=== PATIENT | female | born 1945 | race Caucasian/White ===

== ENCOUNTER 2020-01-30 10:51 | Emergency (ER) | payer OTHER ==
[2020-01-30 10:58] VITALS: BMI 28.0
--- OUTSIDE RECORDS SUMMARY | 2020-01-30 11:00 | XMS ---
:1945 Author Organization [facility] Support Name Relationship Address Phone [facility]ISTER [employer] [facility] [employer] Unavailable [address] [place] [address] MARY BERGER DAUGHTER [address] [place] [address] Re-disclosure Warning The records that you are about to access may contain information from federally- assisted alcohol or drug abuse programs. If such information is present, then the following federally mandated warning applies: This information has been disclosed to you from records protected by federal confidentiality rules (42 CFR part 2). The federal rules prohibit you from making any further disclosure of this information unless further disclosure is expressly permitted by the written consent of the person to whom it pertains or as otherwise permitted by 42 CFR part 2. A general authorization for the release of medical or other information is NOT sufficient for this purpose. The Federal rules restrict any use of the information to criminally investigate or prosecute any alcohol or drug abuse patient.The records that you are about to access may contain highly sensitive health information, the redisclosure of which is protected by Article 27-F of the [facility] Public Health law. If you continue you may haveaccess to information: Regarding HIV / AIDS; Provided by facilities licensed or operated by the [facility] Office of Mental Health; or Provided by the [facility] Office for People With Developmental Disabilities. If such information is present, then the following [facility] mandated warning applies: This information has been disclosed to you from confidential records which are protected by state law. State law prohibits you from making any further disclosure of this information without the specific written consent of the person to whom it pertains, or as otherwise permitted by law. Any unauthorized further disclosure in violation of state law may result in a fine or halfway sentence or both. A general authorization for the release of medical or other information is NOT sufficient authorization for further disclosure. Insurance Providers Payer name Policy type Policy ID Covered Covered libertarian's Policy P clementine / Coverage libertarian ID relationship to [employer] type hernadez [id number] [address] [place] [address] PPO 1
--- NOTE | 2020-01-30 11:11 | PDOC ---
History of Present Illness - General Chief Complaint: Lightheaded Stated Complaint: DIZZINESS/VOMITING Time Seen by Provider: 01/30/20 10:54 - History of Present Illness Initial Comments: Morenita Osei is a 75 y/o female with PMH significant for s/p RI and stent x1 on aspirin plavix presenting today with vertigo. Reports that the vertigo started approximately 1 hour [employer]. She has had 1 prior episode of vertigo 5 years ago when she was undergoing a stressful situation with her son in [place]. She was admitted to the hospital for dehydration that time. Has not tried anything to make it better. Worse when moving to a seated or standing position. No headache/vision changes. No fever/chills. No chest pain/shortness of breath. No abd/back pain. No nausea/vomiting. No cough. No leg swelling. No urinary symptoms. SocHx: social ETOH, never smoker Past History - Medical History Allergies/Adverse Reactions: Allergies Allergy/AdvReac Type Severity Reaction Status Date / Time No Known Allergies Allergy Verified 01/30/20 10:58 Cardiac Disorders: Yes COPD: No HTN: Yes Hypercholesterolemia: Yes - Surgical History Cardiac Surgery: Yes (stent) - Reproductive History Is Patient Now?: No - Psycho-Social/Smoking History Smoking History: Never smoked - Substance Abuse Hx (Audit-C & DAST Scrn) How often the patient has a drink containing alcohol: Monthly or less Score: In Men: 4 or > Positive; In Women: 3 or > Positive: 1 Screen Result (Pos requires Nsg. Audit-10AR): Negative In the last yr the pt used illegal drug/Rx for NonMed reason: No Score: Yes response is considered Positive: 0 Screen Result (Positive result requires Nsg. DAST-10): Negative Review of Systems - Review of Systems Comments:: GENERAL/CONSTITUTIONAL: No fever or chills. No weakness._ HEAD, EYES, EARS, NOSE AND THROAT: No change in vision. No change in hearing. No sore throat._ CARDIOVASCULAR: No chest pain or shortness of breath_ RESPIRATORY: Denies cough, hemoptysis_ GASTROINTESTINAL: No nausea, vomiting, diarrhea or constipation._ GENITOURINARY: No dysuria, frequency, or change in urination._ MUSCULOSKELETAL: No joint or muscle swelling or pain. No neck or back pain._ SKIN: No rash_ NEUROLOGIC: +vertigo. No headache, loss of consciousness, or change in strength/sensation._ ENDOCRINE: No increased thirst. No abnormal weight change_ HEMATOLOGIC/LYMPHATIC: No anemia, easy bleeding, or history of blood clots._ ALLERGIC/IMMUNOLOGIC: No hives or skin allergy._ *Physical Exam - Vital Signs Last Vital Signs Temp Pulse Resp BP Pulse Ox 97.3 F L 67 16 166/83 100 01/30/20 10:53 01/30/20 10:53 01/30/20 10:53 01/30/20 10:53 01/30/20 10:53 - Physical Exam GENERAL: Awake, alert, and oriented to person/place/time, in no acute distress_ HEAD: No signs of trauma, normocephalic, atraumatic _ EYES: PERRLA, EOMI, sclera anicteric, conjunctiva clear. Positive horizontal nystagmus on far lateral gaze bilaterally. ENT: Hearing grossly normal, nares patent, oropharynx clear without exudates. No uvular deviation. Moist mucosa_ NECK: Normal ROM, supple, no lymphadenopathy, JVD, or masses_ LUNGS: No distress, speaks in full sentences, clear to auscultation bilaterally _ HEART: Regular rate and rhythm, normal S1 and S2, no murmurs appreciated, peripheral pulses normal and equal bilaterally._ ABDOMEN: Soft, nontender, normoactive bowel sounds. No guarding, no rebound. No masses_ EXTREMITIES: Normal inspection, Normal range of motion, no edema. No clubbing or cyanosis_ NEUROLOGICAL: Cranial nerves II through XII grossly intact. Normal speech, normal gait, no focal sensorimotor deficits. Cerebellar testing intact. Romberg's negative. SKIN: Warm, Dry, normal turgor, no rashes or lesions noted_ ED Treatment Course - LABORATORY CBC & Chemistry Diagram: 01/30/20 11:45 01/30/20 11:45 Medical Decision Making - Medical Decision Making 01/30/20 11:18 75F hx of RI with stent x1 presenting today with vertigo. Similar symptoms 5 years ago. Presenting today with vertigo for the past couple of hours. She has had a similar episode once in the past before around 5 years ago. -cbc, cmp -ekg, trop, cxr -CT head -meclizine -fluids 01/30/20 11:28 EKG shows 63 bpm, NSR, no axis deviation, ND 170, QTc 440, QRS 90, no ST elevation/depression. No prior EKG for comparison. 01/30/20 13:48 Labs reviewed. Laboratory Last Values WBC 7.5 K/mm3 (4.0-10.0) 01/30/20 11:45 RBC 4.23 M/mm3 (3.60-5.2) 01/30/20 11:45 Hgb 12.6 GM/dL (10.7-15.3) 01/30/20 11:45 Hct 38.4 % (32.4-45.2) 01/30/20 11:45 MCV 90.9 fl (80-96) 01/30/20 11:45 MCH 29.8 pg (25.7-33.7) 01/30/20 11:45 MCHC 32.8 g/dl (32.0-36.0) 01/30/20 11:45 RDW 14.5 % (11.6-15.6) 01/30/20 11:45 Plt Count 251 K/MM3 (134-434) 01/30/20 11:45 MPV 8.2 fl (7.5-11.1) 01/30/20 11:45 Absolute Neuts (auto) 6.0 K/mm3 (1.5-8.0) 01/30/20 11:45 Neutrophils % 80.2 % (42.8-82.8) 01/30/20 11:45 Lymphocytes % 11.0 % (8-40) 01/30/20 11:45 Monocytes % 5.7 % (3.8-10.2) 01/30/20 11:45 Eosinophils % 2.1 % (0-4.5) 01/30/20 11:45 Basophils % 1.0 % (0-2.0) 01/30/20 11:45 Nucleated RBC % 0 % (0-0) 01/30/20 11:45 PT with INR 12.20 SEC (9.7-13.0) 01/30/20 11:45 INR 1.03 (0.83-1.09) 01/30/20 11:45 PTT (Actin FS) 24.5 SECONDS (25.2-36.5) L 01/30/20 11:45 Sodium 140 mmol/L (136-145) 01/30/20 11:45 Potassium 4.0 mmol/L (3.5-5.1) 01/30/20 11:45 Chloride 108 mmol/L (98-107) H 01/30/20 11:45 Carbon Dioxide 27 mmol/L (21-32) 01/30/20 11:45 Anion Gap 5 MMOL/L (8-16) L 01/30/20 11:45 BUN 19.0 mg/dL (7-18) H 01/30/20 11:45 Creatinine 1.4 mg/dL (0.55-1.3) H 01/30/20 11:45 Est GFR (CKD-EPI)AfAm 41.90 01/30/20 11:45 Est GFR (CKD-EPI)NonAf 36.15 01/30/20 11:45 Random Glucose 121 mg/dL (74-106) H 01/30/20 11:45 Calcium 9.0 mg/dL (8.5-10.1) 01/30/20 11:45 Total Bilirubin 0.4 mg/dL (0.2-1) 01/30/20 11:45 AST 36 U/L (15-37) 01/30/20 11:45 ALT 29 U/L (13-61) 01/30/20 11:45 Alkaline Phosphatase 104 U/L (45-117) 01/30/20 11:45 Creatine Kinase 217 U/L (26-192) H 01/30/20 11:45 Creatine Kinase Index 1.3 % (0.0-5.0) 01/30/20 11:45 CK-MB (CK-2) 3.0 ng/mL (0.5-3.6) 01/30/20 11:45 Troponin I < 0.02 ng/ml (0.00-0.05) 01/30/20 11:45 Total Protein 7.4 g/dl (6.4-8.2) 01/30/20 11:45 Albumin 3.6 g/dl (3.4-5.0) 01/30/20 11:45 CT head negative for acute intracranial pathology. CXR negative for acute intrathoracic pathology. Pt reassessed. Reports much improvement. Plan to d/c home with PCP and neuro f/u . All questions answered. Return precautions given. Pt verbalized Discharge - Discharge Information Problems reviewed: Yes Clinical Impression/Diagnosis: Vertigo Condition: Stable Disposition: HOME - Admission No - Follow up/Referral Referrals: Eliel Roman MD [Primary Care Provider] - David Funk MD [Staff Physician] - Kuldip English MD [Staff Physician] - - Patient Discharge Instructions Patient Printed Discharge Instructions: DI for Vertigo Additional Instructions: Please make a follow up appointment with a neurologist (brain specialist) within the next week. Referrals provided here. Please make a follow up appointment with your primary care doctor (referral provided here). Please keep yourself as well hydrated and nourished as possible. If you experience any new, worsening, or concerning symptoms, including new headache, change in the type of dizziness, nausea, vomiting, fever, chills, falls, vision change, weakness, numbness, tingling, or any other concerns, please return to the emergency department. - Post Discharge Activity
[2020-01-30] MEDS ORDERED: SODIUM CHLORIDE 0.9% 500 ML INFUS.BAG IV ONE (11:13)
[2020-01-30] MEDS ORDERED: MECLIZINE HCL 25 MG TABLET (FP) PO ONE (11:18)
[2020-01-30] MEDS ORDERED: MECLIZINE HCL 25 MG TABLET (FP) ONE (11:36)
--- NOTE | 2020-01-30 12:11 | PDOC ---
Documentation entered by Gay Buitrago SCRIBE, acting as scribe for Andre Mathis MD. Andre Mathis MD: This documentation has been prepared by the Iftikhar joseph Ana, SCRIBE, under my direction and personally reviewed by me in its entirety. I confirm that the documentation accurately reflects all work, treatment, procedures, and medical decision making performed by me. Attending Attestation - Resident Resident Name: BernsteinDarshan - ED Attending Attestation I have performed the following: I have examined & evaluated the patient, The case was reviewed & discussed with the resident, I agree w/resident's findings & plan, Exceptions are as noted - HPI HPI: 01/30/20 11:17 Patient is a 75 year old female with a significant past medical history of CAD/stent, HTN, HLD, vertigo, presenting to ED with room-spinning dizziness. Pt states she awoke from sleep at approx 5am with the sensation. Pt denies lightheadedness. States the room-spinning is worse with certain positions. Denies CP/SOB. Endorses one episode of nausea and vomiting. Denies weakness/numbness in any extremity. No slurred speech. Pt reports a similar episode about 1.5 years ago. She was admitted to the hospital and had MRI that she reports was normal. Allergies: NKDA - Physicial Exam PE: 01/30/20 11:18 See resident exam. - Medical Decision Making 01/30/20 12:18 75 F with vertigo and nausea/vomiting. Suspect peripheral vertigo, as pt has had similar episode in the past. No other neuro deficits on exam. Will also r/o ACS given N+V and h/o AL. EKG with no ischemic changes. - Labs, trop - CT head - Meclizine, IV fluids 01/30/20 14:54 CT head wnl Labs unremarkable pt reassessed after meclizine - now has complete resolution of vertigo Pt ambulatory with steady gait Pt is well appearing, with normal vitals. Clinically stable for DC at this time. I discussed the physical exam findings, ancillary test results and final diagnoses with the patient. I answered all of the patient's questions. The patient was satisfied with the care received and felt comfortable with the discharge plan and treatment plan. The patient agrees to follow up with the primary care physician within 24-72 hours. Discharge - Discharge Information Problems reviewed: Yes Clinical Impression/Diagnosis: Vertigo Condition: Stable Disposition: HOME - Follow up/Referral Referrals: Eliel Roman MD [Primary Care Provider] - David Funk MD [Staff Physician] - Kuldip English MD [Staff Physician] - - Patient Discharge Instructions Patient Printed Discharge Instructions: DI for Vertigo Additional Instructions: Please make a follow up appointment with a neurologist (brain specialist) within the next week. Referrals provided here. Please make a follow up appointment with your primary care doctor (referral provided here). Please keep yourself as well hydrated and nourished as possible. If you experience any new, worsening, or concerning symptoms, including new headache, change in the type of dizziness, nausea, vomiting, fever, chills, falls, vision change, weakness, numbness, tingling, or any other concerns, please return to the emergency department. - Post Discharge Activity
[2020-01-30 12:23] LABS: EOS % 2.1 % (0-4.5); HEMATOCRIT 38.4 % (32.4-45.2); HEMOGLOBIN 12.6 GM/dL (10.7-15.3); MCH 29.8 pg (25.7-33.7); MCHC 32.8 g/dl (32.0-36.0); MEAN CELL VOLUME 90.9 fl (80-96); MEAN PLT VOLUME 8.2 fl (7.5-11.1); MONO % 5.7 % (3.8-10.2); NEUT % 80.2 % (42.8-82.8); PLATELET COUNT 251 K/MM3 (134-434); RBC 4.23 M/mm3 (3.60-5.2); RDW 14.5 % (11.6-15.6); WHITE BLOOD COUNT 7.5 K/mm3 (4.0-10.0)
[2020-01-30 12:45] LABS: ALBUMIN 3.6 g/dl (3.4-5.0); ALK PHOS 104 U/L (45-117); ANION GAP 5 MMOL/L (8-16); BILIRUBIN,TOTAL 0.4 mg/dL (0.2-1); CHLORIDE 108 mmol/L (98-107); CO2 27 mmol/L (21-32); CREATININE 1.4 mg/dL (0.55-1.3); GLUCOSE,RANDOM 121 mg/dL (74-106); SGOT/AST 36 U/L (15-37); SGPT/ALT 29 U/L (13-61); SODIUM 140 mmol/L (136-145); TOT PROT 7.4 g/dl (6.4-8.2)
[2020-01-30 13:33] LABS: INR 1.03 (0.83-1.09); PROTHROMBIN TIME (PATIENT) 12.2 SEC (9.7-13.0)
[2020-01-30 13:36] LABS: ACTIVATED PTT 24.5 SECONDS (25.2-36.5)
[2020-01-30 14:07] VITALS: BP 142/80; PULSE 59; TEMP 98
--- NOTE | 2020-01-31 11:06 | EKG ---
Test Reason : Blood Pressure : / mmHG Vent. Rate : 063 BPM Atrial Rate : 063 BPM P-R Int : 170 ms QRS Dur : 090 ms QT Int : 430 ms P-R-T Axes : 070 044 053 degrees QTc Int : 440 ms NORMAL SINUS RHYTHM NORMAL ECG NO PREVIOUS ECGS AVAILABLE Confirmed by CRISTINA TRIPLETT MD ([id number]) on 01/31/2020 11:05:42 AM Referred By: Confirmed By:CRISTINA TRIPLETT MD
== END 2020-01-30 14:06 | disposition home or self-care (01) ==
LOC: JER 10:51
DX: H81.10 Benign paroxysmal vertigo, unspecified ear (principal)
CPT/HCPCS: 36415; 70450-TC; 71045-TC-FY; 80053; 82550; 82553; 84484; 85025; 85610; 85730; 93005; 93010; 99285-25

== ENCOUNTER 2021-01-30 10:33 | Emergency (ER) | payer OTHER ==
[2021-01-30 10:53] VITALS: BP 171/68; PULSE 77; TEMP 98.2; BMI 28.0
== END 2021-01-30 14:25 | disposition home or self-care (01) ==
LOC: JERFT 10:33
DX: M25.512 Pain in left shoulder (principal); V89.2XXA Person injured in unspecified motor-vehicle accident, traffic, initial encounter
CPT/HCPCS: 70450-TC; 72125-TC; 99284-25

== ENCOUNTER 2022-10-09 22:21 | Observation (INO) | payer OTHER ==
[2022-10-09] MEDS ORDERED: SODIUM CHLORIDE 1,000 ML IV SCH (22:30)
[2022-10-09 23:00] LABS: BASO % 1.5 % (0-2.0); EOS % 4.6 % (0-4.5); HEMATOCRIT 36.7 % (32.4-45.2); HEMOGLOBIN 12.2 GM/dL (10.7-15.3); MCH 29.7 pg (25.7-33.7); MCHC 33.2 g/dl (32.0-36.0); MEAN CELL VOLUME 89.4 fl (80-96); MEAN PLT VOLUME 7.8 fl (7.5-11.1); MONO % 12.7 % (3.8-10.2); NEUT % 55.2 % (42.8-82.8); PLATELET COUNT 238 10^3/uL (134-434); RBC 4.11 M/mm3 (3.60-5.2); RDW 14.5 % (11.6-15.6); WHITE BLOOD COUNT 6.9 K/mm3 (4.0-10.0)
[2022-10-09] MEDS ORDERED: MECLIZINE HCL 25 MG TABLET (FP) PO ONE (23:00)
[2022-10-09] MEDS ORDERED: MECLIZINE HCL 25 MG TABLET (FP) ONE (23:03)
[2022-10-09 23:08] LABS: INR 0.99 (0.83-1.09); PROTHROMBIN TIME (PATIENT) 11.5 SEC (9.7-13.0)
[2022-10-09 23:11] LABS: ACTIVATED PTT 25.6 SECONDS (25.2-36.5)
[2022-10-09 23:22] VITALS: BMI 28.1
[2022-10-09 23:23] LABS: CHLORIDE 108 mmol/L (98-107); POTASSIUM 4.2 mmol/L (3.5-5.1); SODIUM 140 mmol/L (136-145)
[2022-10-09 23:24] LABS: CALCIUM 8.8 mg/dL (8.5-10.1)
[2022-10-09 23:25] LABS: ALBUMIN 3.7 g/dl (3.4-5.0); ANION GAP 6 MMOL/L (8-16); CO2 26 mmol/L (21-32)
[2022-10-09 23:26] LABS: GLUCOSE,RANDOM 122 mg/dL (74-106)
[2022-10-09 23:28] LABS: CREATININE 1.5 mg/dL (0.55-1.3); SGOT/AST 29 U/L (15-37); SGPT/ALT 26 U/L (13-61)
[2022-10-09 23:29] LABS: CHOLESTEROL 142 mg/dL (50-200)
[2022-10-09 23:30] LABS: TOT PROT 7.4 g/dl (6.4-8.2)
[2022-10-09 23:31] LABS: BILIRUBIN,TOTAL 0.5 mg/dL (0.2-1); LDL CHOLESTEROL (ONLY SJRH) 67 mg/dL (5-100)
[2022-10-09 23:32] LABS: ALK PHOS 102 U/L (45-117)
[2022-10-10 00:23] LABS: HDL CHOLESTEROL 65 mg/dL (40-60)
[2022-10-10] MEDS ORDERED: ASPIRIN 81 MG CHEWABLE TABLETS PO ONE (01:03)
[2022-10-10] MEDS ORDERED: ASPIRIN 81 MG CHEWABLE TABLETS ONE (01:17)
[2022-10-10] MEDS ORDERED: CLOPIDOGREL BISULFATE 75 MG TABLET (FP) PO ONE (04:01)
[2022-10-10] MEDS: HEPARIN NA (PORCINE) 5,000 UNITS/ML 1ML VIAL SQ SCH ×3 (05:12→22:52)
[2022-10-10 06:36] LABS: HEMOGLOBIN 11.9 GM/dL (10.7-15.3); MCH 30.4 pg (25.7-33.7); MCHC 33.9 g/dl (32.0-36.0); MEAN CELL VOLUME 89.7 fl (80-96); MEAN PLT VOLUME 8.5 fl (7.5-11.1); PLATELET COUNT 216 10^3/uL (134-434); RDW 14.4 % (11.6-15.6); WHITE BLOOD COUNT 7.6 K/mm3 (4.0-10.0)
[2022-10-10] MEDS: LEVOTHYROXINE NA 25 MCG TABLET (FP) PO SCH (06:49)
[2022-10-10 06:57] LABS: POTASSIUM 4.5 mmol/L (3.5-5.1)
[2022-10-10 07:00] LABS: ALBUMIN 3.4 g/dl (3.4-5.0); CALCIUM 8.8 mg/dL (8.5-10.1)
[2022-10-10] MEDS ORDERED: LEVOTHYROXINE NA 25 MCG TABLET (FP) PO SCH (07:00)
[2022-10-10 07:01] LABS: BLOOD UREA NITROGEN 22.2 mg/dL (7-18)
[2022-10-10 07:04] LABS: CREATININE 1.3 mg/dL (0.55-1.3); PHOSPHOROUS 3.9 mg/dL (2.5-4.9)
[2022-10-10 07:05] LABS: BILIRUBIN,TOTAL 0.4 mg/dL (0.2-1); TOT PROT 6.5 g/dl (6.4-8.2)
[2022-10-10] MEDS: RAMIPRIL 5 MG CAPSULE PO SCH (09:15)
[2022-10-10] MEDS: EZETIMIBE 10 MG TABLET (FP) PO SCH (09:15)
[2022-10-10] MEDS: metoPROLOL SUCCINATE 25 MG TAB.SR.24H (FP) PO SCH (09:15)
[2022-10-10 09:26] LABS: PH,URINE 5.5 (5.0-8.0); URINE APPEARANCE CLEAR; URINE BILIRUBIN NEGATIVE (NEGATIVE); URINE COLOR YELLOW; URINE GLUCOSE (UA) NEGATIVE (NEGATIVE); URINE KETONE NEGATIVE (NEGATIVE); URINE LEUK ESTERASE NEGATIVE (NEGATIVE); URINE NITRITE NEGATIVE (NEGATIVE); URINE PROTEIN NEGATIVE (NEGATIVE); URINE UROBILINOGEN 0.2 mg/dL (0.2-1.0)
[2022-10-10] MEDS ORDERED: ATORVASTATIN CA 40 MG TABLET (FP) PO SCH (22:00)
[2022-10-11 02:10] VITALS: RESP 18
[2022-10-11] MEDS: HEPARIN NA (PORCINE) 5,000 UNITS/ML 1ML VIAL SQ SCH (06:28)
[2022-10-11] MEDS: LEVOTHYROXINE NA 25 MCG TABLET (FP) PO SCH (06:29)
[2022-10-11 06:42] LABS: HEMATOCRIT 35.5 % (32.4-45.2); HEMOGLOBIN 12.4 GM/dL (10.7-15.3); MCH 31.5 pg (25.7-33.7); MEAN PLT VOLUME 8.7 fl (7.5-11.1); PLATELET COUNT 209 10^3/uL (134-434); RBC 3.95 M/mm3 (3.60-5.2); RDW 14.4 % (11.6-15.6); WHITE BLOOD COUNT 6.3 K/mm3 (4.0-10.0)
[2022-10-11 06:55] LABS: POTASSIUM 4.2 mmol/L (3.5-5.1)
[2022-10-11 07:02] LABS: CALCIUM 8.8 mg/dL (8.5-10.1)
[2022-10-11 07:03] LABS: BLOOD UREA NITROGEN 21.4 mg/dL (7-18)
[2022-10-11 07:06] LABS: CREATININE 1.4 mg/dL (0.55-1.3)
[2022-10-11] MEDS ORDERED: LACTATED RINGERS SOLUTION 1,000 ML/1,000 ML INFUS.BAG IV SCH (08:30)
[2022-10-11] MEDS: RAMIPRIL 5 MG CAPSULE PO SCH (09:37)
[2022-10-11] MEDS: EZETIMIBE 10 MG TABLET (FP) PO SCH (09:37)
[2022-10-11] MEDS: metoPROLOL SUCCINATE 25 MG TAB.SR.24H (FP) PO SCH (09:37)
[2022-10-11] MEDS ORDERED: ASPIRIN COATED 81 MG TABLET.EC PO SCH (10:00)
[2022-10-11 12:49] VITALS: PULSE 64
[2022-10-11 14:29] VITALS: BP 138/65; TEMP 98.1
[2022-10-13] MEDS ORDERED: CLOPIDOGREL BISULFATE 75 MG TABLET (FP) PO SCH (10:00)
== END 2022-10-11 15:07 | disposition home or self-care (01) ==
LOC: JER 22:21 → UNDOADMOB 23:59 → INTOOBSV 23:59 → JERBED 23:59 → J4S 10-10 02:26 → JERBED 10-10 02:26 → J4S 10-10 14:35 → JERBED 10-10 14:35
PROVIDERS: ADMIT Internal Medicine; ATTEND Internal Medicine
PROC: 3E0337Z Introduction of Electrolytic and Water Balance Substance into Peripheral Vein, Percutaneous Approach (ICD-10-PCS; principal; 2022-10-10)
PROC: 3E013GC Introduction of Other Therapeutic Substance into Subcutaneous Tissue, Percutaneous Approach (ICD-10-PCS; 2022-10-10)
DX: R42 Dizziness and giddiness (principal); R47.1 Dysarthria and anarthria; N17.9 Acute kidney failure, unspecified; I10 Essential (primary) hypertension; E78.5 Hyperlipidemia, unspecified; I25.10 Atherosclerotic heart disease of native coronary artery without angina pectoris; E03.9 Hypothyroidism, unspecified
CPT/HCPCS: 36415; 70450-TC; 70496-TC; 70498-TC; 70551-TC; 71045-TC-FY; 80048; 80053; 80061; 80307; 81003; 82550; 82553; 82962; 83036; 83735; 84100; 84484; 85025; 85027; 85610; 85730; 86850; 86900; 86901; 87635; 93005; 93010; 96372; 97116-GP; 97161-GP; 99285-25; G0378; J1644